=== PATIENT | male | born 1975 | race Hispanic/Latino ===

== ENCOUNTER 2025-01-02 20:19 | Inpatient (IN) | payer SELFPAY ==
[~2025-01-02] VITALS: Ht 180.3 cm; Wt 102.1 kg
[2025-01-02 20:19] VITALS: TEMP 97.5
[2025-01-02] MEDS: ONDANSETRON HCL INJ 2MG/ML 2ML 2 MG/ML VIAL IV STA ×2 (21:03→22:30)
[2025-01-02] MEDS: SODIUM CHLORIDE 0.9% 1000ML 1,000 ML IV ONE ×2 (21:03→22:20)
[2025-01-02 21:08] LABS: BASOPHILS # (AUTO) 0.1 (0.0-0.1); BASOPHILS % 0.4 % (0.0-1.0); EOSINOPHILS # (AUTO) 0.1 (0.0-0.4); EOSINOPHILS % 0.4 % (0.0-6.0); HEMATOCRIT 42.3 % (38.2-49.6); HEMOGLOBIN 14.3 g/dL (14.0-18.0); LYMPHOCYTES # (AUTO) 2.8 (1.0-3.2); MEAN CORPUSCULAR HGB CONC 33.8 g/dL (31-35); MEAN CORPUSCULAR VOLUME 79.8 fL (81-99); MONOCYTES % 4.7 % (4.4-11.3); NEUTROPHILS # (AUTO) 17.5 (2.1-6.9); NEUTROPHILS % 80.1 % (38.7-80.0); PLATELET COUNT 254 x10e3/uL (140-360); RED CELL DISTRIBUTION WIDTH 13.3 % (11.7-14.4)
[2025-01-02 21:20] LABS: ALBUMIN 4.2 g/dL (3.5-5.0); ALBUMIN/GLOBULIN RATIO 1.2 (0.8-2.0); ANION GAP 20.7 mmol/L (8-16); BILIRUBIN,TOTAL 1.7 mg/dL (0.2-1.2); CALCIUM 8.8 mg/dL (8.4-10.2); CREATININE, SERUM 1.68 mg/dL (0.72-1.25); POTASSIUM 3.7 mmol/L (3.5-5.1); TOTAL PROTEIN 7.7 g/dL (6.5-8.1)
[2025-01-02] MEDS ORDERED: SODIUM CHLORIDE 0.9% 1000ML 1,000 ML ONE (22:03)
[2025-01-02 22:06] LABS: CLARITY,URINE CLEAR (CLEAR); COLOR,URINE YELLOW (YELLOW)
[2025-01-02 22:07] LABS: BILIRUBIN,URINE NEGATIVE (NEGATIVE); GLUCOSE, URINE 500 (NEGATIVE); KETONES,URINE NEGATIVE (NEGATIVE); LEUKOCYTE ESTERASE ,URINE NEGATIVE (NEGATIVE); NITRITE,URINE NEGATIVE (NEGATIVE); PH,URINE 5.5 (5 - 7); PROTEIN,URINE DIPSTICK 1+ (NEGATIVE); URINE UROBILINOGEN 0.2 mg/dL (0.2 - 1)
[2025-01-02] MEDS: Morphine 4mg INJECTION 4 MG/ML INJ IV ONE (22:20)
[2025-01-02 22:23] LABS: BACTERIA,URINE MODERATE /HPF; EPITHELIAL CELLS,URINE FEW /LPF
[2025-01-02] MEDS ORDERED: ONDANSETRON HCL INJ 2MG/ML 2ML 2 MG/ML VIAL ONE (22:23)
[2025-01-02] MEDS ORDERED: ONDANSETRON HCL INJ 2MG/ML 2ML 2 MG/ML VIAL IV PRN (23:00)
[2025-01-02] MEDS ORDERED: SODIUM CHLORIDE 0.9% 1000ML 1,000 ML IV SCH (23:00)
[2025-01-02] MEDS ORDERED: Morphine 4mg INJECTION 4 MG/ML INJ IV PRN (23:00)
[2025-01-03] VITALS (11 sets, daily range): BP systolic 121–137; BP diastolic 74–82; PULSE 57–84; RESP 17–20; TEMP 97.9–98.6; O2SAT 94–100
[2025-01-03] MEDS ORDERED: IOPAMIDOL 370 MG/ML 100 ML INFUS..BTL INJ ONE (00:24)
[2025-01-03] MEDS ORDERED: NOVOLOG MI100 UNIT/1 SC (02:17)
[2025-01-03] MEDS ORDERED: SIMVASTATIN20 MG PO (02:18)
[2025-01-03] MEDS ORDERED: LISINOPRIL5 MG PO (02:19)
[2025-01-03] MEDS: SODIUM CHLORIDE 0.9% 1000ML 1,000 ML IV ONE (02:30)
[2025-01-03] MEDS: ONDANSETRON HCL INJ 2MG/ML 2ML 2 MG/ML VIAL IV PRN (06:51)
[2025-01-03] MEDS: Morphine 4mg INJECTION 4 MG/ML INJ IV PRN (06:51)
[2025-01-03 08:52] LABS: BASOPHILS % 0.3 % (0.0-1.0); EOSINOPHILS # (AUTO) 0.1 (0.0-0.4); EOSINOPHILS % 0.7 % (0.0-6.0); HEMOGLOBIN 12.5 g/dL (14.0-18.0); LYMPHOCYTES # (AUTO) 2.1 (1.0-3.2); LYMPHOCYTES % 17.7 % (18.0-39.1); MEAN CORPUSCULAR HGB CONC 33.8 g/dL (31-35); MEAN CORPUSCULAR VOLUME 79.9 fL (81-99); MONOCYTES # (AUTO) 0.9 (0.2-0.8); MONOCYTES % 7.4 % (4.4-11.3); NEUTROPHILS # (AUTO) 8.8 (2.1-6.9); NEUTROPHILS % 73.5 % (38.7-80.0); PLATELET COUNT 180 x10e3/uL (140-360); RED BLOOD COUNT 4.63 x10e6/uL (4.3-5.7); RED CELL DISTRIBUTION WIDTH 13.7 % (11.7-14.4); WHITE BLOOD COUNT 11.98 x10e3/uL (4.8-10.8)
[2025-01-03 09:21] LABS: ALBUMIN 3.4 g/dL (3.5-5.0); ALBUMIN/GLOBULIN RATIO 1.1 (0.8-2.0); ANION GAP 17.2 mmol/L (8-16); BILIRUBIN,TOTAL 1.6 mg/dL (0.2-1.2); CALCIUM 7.9 mg/dL (8.4-10.2); CREATININE, SERUM 1.08 mg/dL (0.72-1.25); POTASSIUM 4.2 mmol/L (3.5-5.1); TOTAL PROTEIN 6.5 g/dL (6.5-8.1)
[2025-01-03] MEDS ORDERED: DEXTROSE 50% SYRINGE 50 ML IV PRN ×2 (09:30→14:45)
[2025-01-03] MEDS: INSULIN REGULAR, HUMAN 100 UNIT/1 ML SQ SCH (11:46)
[2025-01-03] MEDS ORDERED: SIMETHICONE 80 MG CHEW PO PRN (14:45)
[2025-01-03] MEDS ORDERED: HYDRALAZINE HCL 20 MG/ML VIAL IV PRN (14:45)
[2025-01-03] MEDS ORDERED: BENZONATATE 100 MG CAP PO PRN (14:45)
[2025-01-03] MEDS ORDERED: DIPHENHYDRAMINE HCL 25 MG CAP PO PRN (14:45)
[2025-01-03] MEDS ORDERED: POTASSIUM CHLORIDE 20 MEQ TAB CR PO PRN (14:45)
[2025-01-03] MEDS ORDERED: ALBUTEROL/IPRATROPIUM 3 ML NEB NEB PRN (14:45)
[2025-01-03] MEDS: KETOROLAC TROMETHAMINE 30 MG/ML VIAL IV SCH ×2 (15:45→22:28)
[2025-01-03] MEDS: ENOXAPARIN SOD INJ 40 MG/0.4 ML SYR SC SCH (16:10)
[2025-01-03] MEDS: INSULIN LISPRO 100 UNIT/1 ML 3ML VIAL SQ SCH (16:25)
[2025-01-03] MEDS: SIMVASTATIN 20 MG TAB PO SCH (22:19)
[2025-01-03] MEDS: INSULIN GLARGINE 100 UNITS/ML VIAL SQ SCH (22:27)
[2025-01-03] MEDS: CYCLOBENZAPRINE HCL 10 MG TAB PO PRN (22:45)
[2025-01-03] MEDS: MELATONIN 5 MG TABLET PO PRN (23:43)
[2025-01-03] MEDS: ACETAMINOPHEN 325 MG TAB PO PRN (23:46)
[2025-01-04] VITALS (11 sets, daily range): BP systolic 113–158; BP diastolic 71–91; PULSE 62–90; RESP 18–20; TEMP 97.9–100; O2SAT 94–100
[2025-01-04] MEDS: Morphine 4mg INJECTION 4 MG/ML INJ IV PRN (03:50)
[2025-01-04 05:03] LABS: BASOPHILS # (AUTO) 0.1 (0.0-0.1); BASOPHILS % 0.5 % (0.0-1.0); EOSINOPHILS # (AUTO) 0.2 (0.0-0.4); EOSINOPHILS % 1.8 % (0.0-6.0); HEMATOCRIT 36.6 % (38.2-49.6); HEMOGLOBIN 12.2 g/dL (14.0-18.0); LYMPHOCYTES # (AUTO) 2.5 (1.0-3.2); MEAN CORPUSCULAR HEMOGLOBIN 26.9 pg (28-32); MEAN CORPUSCULAR HGB CONC 33.3 g/dL (31-35); MEAN CORPUSCULAR VOLUME 80.8 fL (81-99); MONOCYTES # (AUTO) 0.8 (0.2-0.8); MONOCYTES % 7.8 % (4.4-11.3); NEUTROPHILS # (AUTO) 6.2 (2.1-6.9); NEUTROPHILS % 63.6 % (38.7-80.0); PLATELET COUNT 147 x10e3/uL (140-360); RED BLOOD COUNT 4.53 x10e6/uL (4.3-5.7); RED CELL DISTRIBUTION WIDTH 13.6 % (11.7-14.4); WHITE BLOOD COUNT 9.77 x10e3/uL (4.8-10.8)
[2025-01-04 05:23] LABS: ANION GAP 15.9 mmol/L (8-16); CALCIUM 7.8 mg/dL (8.4-10.2); CREATININE, SERUM 0.93 mg/dL (0.72-1.25); POTASSIUM 3.9 mmol/L (3.5-5.1)
[2025-01-04] MEDS: PANTOPRAZOLE SOD 40 MG TABEC PO SCH (08:33)
[2025-01-04] MEDS: LISINOPRIL 2.5 MG TAB PO SCH (08:33)
[2025-01-04] MEDS: DOCUSATE SODIUM 100 MG CAP PO PRN (18:40)
[2025-01-04] MEDS: INSULIN GLARGINE 100 UNITS/ML VIAL SQ SCH (22:13)
[2025-01-05] VITALS (11 sets, daily range): BP systolic 108–142; BP diastolic 61–92; PULSE 64–80; RESP 17–19; TEMP 97.6–98.9; O2SAT 96–100
[2025-01-05] MEDS: LACTULOSE SYRUP 20 GM/30 ML UDC PO SCH (15:00)
[2025-01-05] MEDS: KETOROLAC TROMETHAMINE 30 MG/ML VIAL IV SCH (15:05)
[2025-01-05] MEDS: INSULIN GLARGINE 100 UNITS/ML VIAL SQ SCH (22:20)
[2025-01-06] VITALS (11 sets, daily range): BP systolic 108–126; BP diastolic 63–86; PULSE 56–93; RESP 17–22; TEMP 97.4–98.6; O2SAT 95–100
[2025-01-06 05:24] LABS: HEMATOCRIT 37.8 % (38.2-49.6); HEMOGLOBIN 12.5 g/dL (14.0-18.0)
[2025-01-06 06:02] LABS: ANION GAP 15.7 mmol/L (8-16); CALCIUM 8.3 mg/dL (8.4-10.2); CREATININE, SERUM 0.85 mg/dL (0.72-1.25); POTASSIUM 3.7 mmol/L (3.5-5.1)
[2025-01-06] MEDS: LIDOCAINE 4% PATCH TP PRN (08:39)
[2025-01-06] MEDS: HYDROCODONE/APAP 10MG-325MG TAB PO PRN (18:53)
[2025-01-07] VITALS (10 sets, daily range): BP systolic 115–137; BP diastolic 70–90; PULSE 68–83; RESP 18–20; TEMP 97.7–98.8; O2SAT 97–100
[2025-01-08 04:01] VITALS: BP 118/80; PULSE 69; RESP 18; TEMP 98.1; O2SAT 100
[2025-01-08 07:59] VITALS: PULSE 66; RESP 18; O2SAT 97
[2025-01-08 08:16] VITALS: BP 126/75; PULSE 72; RESP 18; TEMP 97.3; O2SAT 100
[2025-01-08 08:50] VITALS: BP 126/75; PULSE 72; RESP 18; TEMP 97.3; O2SAT 100
[2025-01-08 11:22] VITALS: BP 130/65; PULSE 77; RESP 18; TEMP 98; O2SAT 99
[2025-01-08 16:20] VITALS: BP 123/73; PULSE 79; RESP 18; TEMP 97.8; O2SAT 99
== END 2025-01-08 18:30 | disposition home or self-care (01) | DRG 89 ==
LOC: ER 20:22 → ERHOLD 01-03 01:05 → MED/SURG 01-03 02:00 → OBSVTOIN 01-04 11:03
PROVIDERS: ADMIT Internal Medicine; ATTEND Internal Medicine
DX: S06.0X0A Concussion without loss of consciousness, initial encounter (principal); S22.089A Unspecified fracture of T11-T12 vertebra, initial encounter for closed fracture; S32.059A Unspecified fracture of fifth lumbar vertebra, initial encounter for closed fracture; S32.111A Minimally displaced Zone I fracture of sacrum, initial encounter for closed fracture; S32.591A Other specified fracture of right pubis, initial encounter for closed fracture; E11.9 Type 2 diabetes mellitus without complications; I10 Essential (primary) hypertension; E78.5 Hyperlipidemia, unspecified; W11.XXXA Fall on and from ladder, initial encounter; E66.01 Morbid (severe) obesity due to excess calories; Z68.31 Body mass index [BMI] 31.0-31.9, adult; Z87.891 Personal history of nicotine dependence; Z83.3 Family history of diabetes mellitus; Z82.49 Family history of ischemic heart disease and other diseases of the circulatory system
CPT/HCPCS: 36415; 70450; 71045; 71260; 72125; 72128; 72131; 74177; 80048; 80053; 81001; 82948; 85014; 85018; 85025; 86850; 86900; 93005; 94799; 99284; G0378; J1650; J1815; J1885; J2270; J2405; J2470; J7030; Q9967